=== PATIENT | female | born 1975 | race Caucasian/White ===

== ENCOUNTER 2022-04-02 17:52 | Emergency (ER) | payer BC ==
[2022-04-02] MEDS ORDERED: FAMOTIDINE 20 MG/50 ML IVPB 20 MG/50 ML MG IVPB ONE ×2 (18:13→18:20)
[2022-04-02] MEDS ORDERED: ONDANSETRON 4 MG/2 ML VIAL IVPUSH ONE (18:13)
[2022-04-02] MEDS ORDERED: SODIUM CHLORIDE 1,000 ML IV STA ×2 (18:19→18:46)
[2022-04-02] MEDS ORDERED: ONDANSETRON 4 MG/2 ML VIAL ONE (18:20)
[2022-04-02 18:27] VITALS: TEMP 97.2; BMI 29.2
[2022-04-02 18:30] LABS: HEMATOCRIT 48.5 % (32.4-45.2); HEMOGLOBIN 17.5 G/dL (10.7-15.3); MEAN CELL VOLUME 91.7 fl (80-96); MEAN PLT VOLUME 8.4 fl (7.5-11.1); PLATELET COUNT 350.9 10^3/uL (134-434); RBC 5.29 10^6/uL (3.60-5.2); RDW 13.2 % (11.6-15.6)
[2022-04-02 18:40] LABS: CALCIUM 9.7 mg/dl (8.5-10); CREATININE 0.9 mg/dl (0.55-1.3)
[2022-04-02 18:43] LABS: ALBUMIN 4.1 g/dl (3.4-5.0); BILIRUBIN,TOTAL 0.6 mg/dl (0.2-1); TOT PROT 7.3 g/dl (6.4-8.2)
[2022-04-02] MEDS ORDERED: ACETAMINOPHEN 1000 MG/100 ML BAG IVPB ONE (18:43)
[2022-04-02] MEDS ORDERED: ACETAMINOPHEN INJECTION 100 ML IVPB ONE (18:46)
[2022-04-02 19:16] VITALS: BP 119/70; PULSE 65
[2022-04-02] MEDS ORDERED: KCL 10 MEQ IVPB 10 MEQ/100 ML INFUS.BAG IVPB SCH (19:30)
[2022-04-02 20:04] LABS: EPITHELIAL CELLS FEW /hpf
[2022-04-02 20:05] LABS: URINE HYALINE CAST 0-2 /lpf
== END 2022-04-02 20:43 | disposition home or self-care (01) ==
LOC: FER 17:52
PROC: 3E0333Z Introduction of Anti-inflammatory into Peripheral Vein, Percutaneous Approach (ICD-10-PCS; principal; 2022-04-02)
PROC: 3E033GC Introduction of Other Therapeutic Substance into Peripheral Vein, Percutaneous Approach (ICD-10-PCS; 2022-04-02)
PROC: 3E033GC Introduction of Other Therapeutic Substance into Peripheral Vein, Percutaneous Approach (ICD-10-PCS; 2022-04-02)
PROC: 3E0337Z Introduction of Electrolytic and Water Balance Substance into Peripheral Vein, Percutaneous Approach (ICD-10-PCS; 2022-04-02)
PROC: 3E0337Z Introduction of Electrolytic and Water Balance Substance into Peripheral Vein, Percutaneous Approach (ICD-10-PCS; 2022-04-02)
DX: K52.9 Noninfective gastroenteritis and colitis, unspecified (principal)
CPT/HCPCS: 36415; 80053; 81003; 81015; 83690; 84703; 85025; 87086; 99284-25